=== PATIENT | male | born 1940 | race Caucasian/White ===

== ENCOUNTER → 2016-04-15 | Outpatient (CLI) | payer MEDICARE, OTHER | LOC: RAD 07:24 | PROVIDERS: ATTEND Internal Medicine | DX: C01 Malignant neoplasm of base of tongue (principal) | CPT/HCPCS: 70491; 71260; 82565 ==

== ENCOUNTER → 2016-07-24 | Outpatient (CLI) | payer MEDICARE, OTHER | LOC: RAD 10:21 | PROVIDERS: ATTEND Internal Medicine | DX: C01 Malignant neoplasm of base of tongue (principal); R10.9 Unspecified abdominal pain | CPT/HCPCS: 70491; 71260; 74177 ==

== ENCOUNTER → 2016-10-14 | Outpatient (CLI) | payer MEDICARE, OTHER ==
--- NOTE | 2016-10-14 11:46 | RADIOLOGY REPORT (SQ) ---
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 Reconstructed coronal and sagittal MPR images reviewed. All images stored on PACS. All CT scanners at this facility use dose modulation, iterative reconstruction, and/or weight based d osing when appropriate to reduce radiation dose to as low as reasonably achievable (ALARA). [facility]: Dose Right [facility]: CareDose [facility]: Dose Right [facility]: Teradose 4D [facility]: StudyTube CONTRAST TYPE AND DOSE: contrast/concentration: Isovue 370.00 mg/ml; Total Contrast Delivered: 75.0 ml; Total Saline Delivered: 55.0 ml RENAL FUNCTION: Creatinine 1.0 RADIATION DOSE: 19.2 . LIMITATIONS: There is streak artifact from metallic dental work, which obscures the fine detail at t he tongue base FINDINGS: SKULL BASE: Intact. MAJOR SALIVARY GLANDS: No solid or cystic masses. No inflammatory changes. LYMPHADENOPATHY: No adenopathy. Single 1.2 x 0.8 cm pretracheal lymph node, similar compared to 07/24, 04/15/2016 and 01/13/2016. MUCOSAL MASSES OR ASYMMETRY: There is atrophy of the right tongue base in an area of prior tumor. Fi ne anatomic detail of the tongue is difficult to visualize due to streak artifact from metallic denta l work. LARYNX/CORDS: No abnormal findings. VASCULAR STRUCTURES: The major vessels are patent. LUNG APICES: Clear. BONES: Intact. THYROID: Normal size. No masses. PARANASAL SINUSES: Post bilateral endoscopic sinus surgery with widening of the maxillary outlets and resection of the inferior turbinates. OTHER: No other significant finding. IMPRESSION: Atrophy of the rightward tongue base post treatment. TECHNICAL DOCUMENTATION: JOB ID: [id number] Quality ID # [id number]: Final reports with documentation of one or more dose reduction techniques (e.g., Au tomated exposure control, adjustment of the mA and/or kV according to patient size, use of iterative reconstruction technique) 2010 [employer]- All Rights Reserved
== END ==
LOC: RAD 07:56
PROVIDERS: ATTEND Internal Medicine
DX: C01 Malignant neoplasm of base of tongue (principal)
CPT/HCPCS: 70491; 82565

== ENCOUNTER → 2017-07-21 | Outpatient (CLI) | payer MEDICARE, OTHER ==
--- NOTE | 2017-07-21 13:02 | RADIOLOGY REPORT (SQ) ---
EXAM DESCRIPTION: BARIUM SWALLOW ESOPHAGUS COMPLETED DATE/TIME: 07/21/2017 9:44 am REASON FOR STUDY: R13.10 DYSPHAGIA, UNSPECIFIED R13.10 DYSPHAGIA, UNSPECIFIED COMPARISON: None. TECHNIQUE: Under fluoroscopic guidance, patient ingested effervescent granules followed by thick and thin barium. Fluoroscopic spot images and routine radiographic images acquired and stored on PACS. 12 MM BARIUM TABLET GIVEN: The patient swallowed a 12 mm barium tablet which passed easily through th e esophagus and into the stomach without delay. LIMITATIONS: None. FLUOROSCOPY TIME: FLUORO TIME: 2.5 minutes 8 images saved to PACS. FINDINGS: NEUROMUSCULAR COORDINATION OF SWALLOW: Normal. Trace aspiration was seen from contrast re siduals. ESOPHAGEAL MOTILITY: Normal peristalsis. No esophageal spasm. ESOPHAGEAL MUCOSA: Normal mucosa without masses or ulceration. GASTRO-ESOPHAGEAL JUNCTION: No hiatal hernia identified. Significant gastroesophageal reflux was dem onstrated. NON-GI TRACT STRUCTURES: No significant finding. OTHER: No other significant finding. IMPRESSION: GASTROESOPHAGEAL REFLUX. TRACE ASPIRATION FROM RESIDUALS. OTHERWISE UNREMARKABLE STUDY . RECOMMENDATION: NONE COMMENT: NONE Quality ID 145: Final reports for procedures using fluoroscopy that document radiation exposure fab josemanuel, or exposure time and number of fluorographic images (if radiation exposure indices are not avail able) TECHNICAL DOCUMENTATION: JOB ID: [id number] [employer]- All Rights Reserved Reading location - IP/workstation name: [email or web address]
== END ==
LOC: RAD 10:21
PROVIDERS: ATTEND Family Medicine
DX: K21.9 Gastro-esophageal reflux disease without esophagitis (principal); R13.10 Dysphagia, unspecified
CPT/HCPCS: 74220

== ENCOUNTER → 2017-07-30 | Outpatient (CLI) | payer MEDICARE, OTHER ==
--- NOTE | 2017-07-30 10:25 | RADIOLOGY REPORT (SQ) ---
EXAM DESCRIPTION: CT SOFT TISSUE NECK WITH COMPLETED DATE/TIME: 07/30/2017 9:48 am REASON FOR STUDY: TONGUE CA (C01) C01 MALIGNANT NEOPLASM OF BASE OF TONGUE COMPARISON: PET-CT 04/21/2015, 05/08/2015, 01/13/2016 MRI soft tissue neck 05/08/2015 CT soft tissue neck 04/15/2016, 07/24/2016, 10/14/2016, 02/13/2017 CT chest 07/24/2016 TECHNIQUE: Post IV contrasted scanning from skull base through lung apices with review of bone, soft tissue and lung windows. Reconstructed coronal and sagittal MPR images reviewed. All images stored on PACS. All CT scanners at this facility use dose modulation, iterative reconstruction, and/or weight based d osing when appropriate to reduce radiation dose to as low as reasonably achievable (ALARA). [facility]: Dose Right [facility]: CareDose [facility]: Dose Right [facility]: Teradose 4D [facility]: [employer] CONTRAST TYPE AND DOSE: contrast/concentration: Isovue 370.00 mg/ml; Total Contrast Delivered: 75.0 ml; Total Saline Delivered: 55.0 ml RENAL FUNCTION: Creatinine 1.0 RADIATION DOSE: 20.6 mGy . LIMITATIONS: Streak artifact from metallic dental work FINDINGS: SKULL BASE: Inferior brain parenchyma in the field of view unremarkable MAJOR SALIVARY GLANDS: No solid or cystic masses. No inflammatory changes. LYMPHADENOPATHY: No cervical adenopathy. In the upper mediastinum, a 1.4 x 1 cm pretracheal lymph no de is present on axial image 95 (was 1.2 x 1 cm on 07/24/2016). A 2.7 x 1.4 cm precarinal lymph node is present on axial image 100 (was 2 x 1.2 cm in size on 07/25/19). MUCOSAL MASSES OR ASYMMETRY: Tongue base mass seen on MRI 05/08/2015 is no longer identified. Mild atr ophy of the right tongue muscles. No gross recurrent enhancing tongue base mass. LARYNX/CORDS: No abnormal findings. VASCULAR STRUCTURES: The major vessels are patent. LUNG APICES: There is new airspace disease versus mass in the posterior right upper lobe on image 108 . Follow-up CT chest recommended. BONES: Post cervical fusion with hardware from C4 through C7. Old right healed clavicle fracture THYROID: Normal size. No masses. PARANASAL SINUSES: Air-fluid levels in the bilateral maxillary sinuses, mucous membrane thickening an d fluid in the right anterior ethmoid air cells OTHER: No other significant finding. IMPRESSION: No CT evidence of recurrent tongue base mass or cervical adenopathy Upper mediastinal adenopathy with mass versus infiltrate in the posterior aspect right lung apex TECHNICAL DOCUMENTATION: JOB ID: [id number] Quality ID # [id number]: Final reports with documentation of one or more dose reduction techniques (e.g., Au tomated exposure control, adjustment of the mA and/or kV according to patient size, use of iterative reconstruction technique) 2010 [employer]- All Rights Reserved Reading location - IP/workstation name: [email or web address]
== END ==
LOC: RAD 09:11
PROVIDERS: ATTEND Internal Medicine
DX: C01 Malignant neoplasm of base of tongue (principal)
CPT/HCPCS: 70491; 82565

== ENCOUNTER → 2017-10-31 | Outpatient (CLI) | payer MEDICARE, OTHER ==
--- NOTE | 2017-10-31 09:41 | RADIOLOGY REPORT (SQ) ---
EXAM DESCRIPTION: CT CHEST WITHOUT COMPLETED DATE/TIME: 10/31/2017 9:12 am REASON FOR STUDY: TONGUE CA C01 MALIGNANT NEOPLASM OF BASE OF TONGUE COMPARISON: CT chest 04/15/2016, 11/14/2011 CT soft tissue neck 07/30/2017 PET-CT 01/13/2016 TECHNIQUE: CT scan performed of the chest without intravenous contrast. Images reviewed with lung, soft tissue and bone windows. Reconstructed coronal and sagittal MPR images reviewed. All images st ored on PACS. All CT scanners at this facility use dose modulation, iterative reconstruction, and/or weight based d osing when appropriate to reduce radiation dose to as low as reasonably achievable (ALARA). [facility]: Dose Right [facility]: CareDose [facility]: Dose Right [facility]: Teradose 4D [facility]: [employer] RADIATION DOSE: CT Rad equipment meets quality standard of care and radiation dose reduction techniq ues were employed. CTDIvol: 5.4 mGy. DLP: 203 mGy-cm. mGy. LIMITATIONS: No technical limitations. FINDINGS: LUNGS AND PLEURA: Mild increased interstitial markings are present in the right lung, uppe r lobe adjacent to the minor fissure and right lower lobe. This could represent sequela of treated a spiration pneumonia. Currently, no fluffy alveolar infiltrates are present worrisome for pneumonia. No pleural effusion. No pneumothorax. No worrisome pulmonary nodules. HILAR AND MEDIASTINAL STRUCTURES: Decrease in size of lymph nodes in the upper anterior mediastinum c ompared to CT soft tissue neck 07/30/2017 as follows: Pretracheal 1.6 x 0.8 cm lymph node axial image 15 (was 1.4 x 1 cm in size 07/30/2017). Precarinal 2 x 1.4 cm lymph node axial image 23 (was 2.7 x 1.4 cm on 07/30/2017). No gross enlarged hilar lymph nodes. No significant sub- carinal adenopathy. HEART AND VASCULAR STRUCTURES: No aneurysm. No pericardial effusion. Mild coronary artery calcifica tions UPPER ABDOMEN: Stable 4.5 x 2.5 cm cyst left lobe liver THYROID AND OTHER SOFT TISSUES: Unremarkable BONES: No significant finding. HARDWARE: None in the chest. OTHER: No other significant findings. IMPRESSION: Decreased size of mediastinal lymph nodes compared to 07/30/2017 Mild increased interstitial markings throughout the right lung, question sequela of prior aspiration pneumonia. TECHNICAL DOCUMENTATION: JOB ID: [id number] Quality ID # 436: Final reports with documentation of one or more dose reduction techniques (e.g., Au tomated exposure control, adjustment of the mA and/or kV according to patient size, use of iterative reconstruction technique) 2010 [employer]- All Rights Reserved Reading location - IP/workstation name: [facility]
== END ==
LOC: RAD 08:58
PROVIDERS: ATTEND Internal Medicine
DX: C01 Malignant neoplasm of base of tongue (principal)
CPT/HCPCS: 71250

== ENCOUNTER → 2019-01-03 | Outpatient (CLI) | payer MEDICARE, OTHER ==
--- NOTE | 2019-01-04 08:40 | RADIOLOGY REPORT (SQ) ---
EXAM DESCRIPTION: PET CT SKULL/THIGH COMPLETED DATE/TIME: 01/04/2019 12:28 am REASON FOR STUDY: (C01)MALIGNANT NEOPLASM OF BASE OF TONGUE C01 MALIGNANT NEOPLASM OF BASE OF TONGU E COMPARISON: PET-CT 01/13/2016 CT soft tissue neck 07/30/2017, 07/24/2016 CT chest 10/31/2017, 07/24/2016 RADIONUCLIDE AND DOSE: 11.6 mCi F18 FDG The route of agent administration: Intravenous FASTING BLOOD SUGAR: 103 mg/dl CONTRAST TYPE AND DOSE: No CT contrast given. TECHNIQUE: Blood glucose level was verified. Above dose of FDG was injected intravenously. 2-D seg mented attenuation correction images were obtained from the base of the skull to the midthighs. Nonc ontrast CT images were obtained for attenuation correction and fusion with emission images. CT image s were performed without oral or intravenous contrast and are not sensitive for parenchymal lesions. A series of overlapping emission PET images were obtained. [facility] by the radiologist. Images stored on PACS. LIMITATIONS: None. FINDINGS: HEAD AND NECK: No areas of abnormal metabolic activity in the soft tissues of the head and neck. Specifically, no recurrence tongue base neoplasm is identified. CHEST: There is patchy airspace disease in the right middle lobe (SUV 4.2), and in the right lower lo be (SUV 3.0). Adjacent reactive pleural effusion without pleural metabolic activity. There are lymph nodes with minimal baseline activity equal to that of the liver, likely reactive in n ature. These are smaller than on prior exams and are as follows: Pretracheal 1.6 x 1 cm lymph node axial image 70 SUV 2.0 Right paratracheal 1.9 x 1.2 cm lymph node axial image 80 SUV 2.2 ABDOMEN AND PELVIS: No areas of abnormal metabolic activity in the abdomen or pelvis. Expected physi ologic activity is present in the genitourinary system and bowel. PROXIMAL LOWER EXTREMITIES: No areas of abnormal metabolic activity in the soft tissues of the lower extremities. BONES: No abnormal metabolic activity in the visualized skeleton. ADDITIONAL CT FINDINGS: Lower cervical spine fusion. Coronary artery calcifications. Benign liver c ysts. OTHER: Liver background activity 2.0 SUV. Blood pool background activity 1.6 SUV IMPRESSION: Resolving right middle and lower lobe pneumonia with reactive benign appearing mediastin al adenopathy No PET-CT evidence of recurrent tongue base malignancy. TECHNICAL DOCUMENTATION: JOB ID: [id number] [employer]- All Rights Reserved Reading location - IP/workstation name: [email or web address]
== END ==
LOC: RAD 14:20
PROVIDERS: ATTEND Internal Medicine
DX: C01 Malignant neoplasm of base of tongue (principal)
CPT/HCPCS: 78815; A9552

== ENCOUNTER → 2019-03-10 | Outpatient (CLI) | payer MEDICARE, OTHER ==
--- NOTE | 2019-03-10 13:22 | RADIOLOGY REPORT (SQ) ---
EXAM DESCRIPTION: CT CHEST WITHOUT COMPLETED DATE/TIME: 03/10/2019 9:49 am REASON FOR STUDY: SOB R06.02 SHORTNESS OF BREATH COMPARISON: 10/31/2017 TECHNIQUE: CT scan performed of the chest without intravenous contrast. Images reviewed with lung, soft tissue and bone windows. Reconstructed coronal and sagittal MPR images reviewed. All images st ored on PACS. All CT scanners at this facility use dose modulation, iterative reconstruction, and/or weight based d osing when appropriate to reduce radiation dose to as low as reasonably achievable (ALARA). [facility]: Dose Right [facility]: CareDose [facility]: Dose Right [facility]: Teradose 4D [facility]: [employer] RADIATION DOSE: CT Rad equipment meets quality standard of care and radiation dose reduction techniq ues were employed. CTDIvol: 6.3 mGy. DLP: 262 mGy-cm. mGy. LIMITATIONS: No technical limitations. FINDINGS: LUNGS AND PLEURA: There is a large right-sided hydropneumothorax. No significant mediasti nal shift. There is patchy consolidation most conspicuous within the right lower lobe. Left hemitho rax demonstrates minimal scattered areas ground-glass attenuation hypoventilatory change. No signifi cant effusion or pneumothorax in the left. HILAR AND MEDIASTINAL STRUCTURES: Grossly stable mediastinal nodes. Largest pretracheal node measure s 9 mm in short axis. No new discrete mediastinal, hilar or axillary adenopathy. . Dilation of the ascending aorta measuring up to 3.6 cm. HEART AND VASCULAR STRUCTURES: Coronary atherosclerosis. Normal heart size. No pericardial effusion . UPPER ABDOMEN: No acute findings. Gastrostomy tube retention bumper within the gastric lumen. Left hepatic cyst. THYROID AND OTHER SOFT TISSUES: Unremarkable thyroid. BONES: No significant finding. HARDWARE: None in the chest. OTHER: No other significant findings. IMPRESSION: 1. Large right-sided hydropneumothorax. No significant mediastinal shift. Consider ch est tube placement. 2. Patchy consolidation throughout the right lung, possibly atelectasis or infection. Findings were conveyed to Dr. Leiva On 03/10/2019 at 1310 hours. TECHNICAL DOCUMENTATION: JOB ID: [id number] Quality ID # [id number]: Final reports with documentation of one or more dose reduction techniques (e.g., Au tomated exposure control, adjustment of the mA and/or kV according to patient size, use of iterative reconstruction technique) 2010 [employer]- All Rights Reserved Reading location - IP/workstation name: [email or web address]
== END ==
LOC: RAD 09:33
PROVIDERS: ATTEND Physician Assistant Medical
DX: J94.2 Hemothorax (principal); R06.02 Shortness of breath
CPT/HCPCS: 71250

== ENCOUNTER → 2019-11-25 | Outpatient (CLI) | payer MEDICARE, OTHER ==
--- NOTE | 2019-11-25 09:20 | ST Modified Barium Swallow ---
Recommendation - Recommendations Recommendations: Recommend following up with outpatient speech therapy for dysphagia treatment. Primary source of nutrition should remain PEG. Recommend possible GI consult due to significantly reduced UES opening during swallowing. 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 Stern Risks/Precautions: Aspiration Date of Onset: 07/30/15 - approximate onset Reason for Referral: difficulty swallowing, use of PEG tube - History -: Medical - Patient evaluated in outpatient office on 11/10/19 with the following history: Broken neck in 1958. Hx of prostate CA. Tongue CA, treated with radiation and chemo (07/2015-09/2015). R lung collapsed in 10/2018, and again on 02/2019. The pt did have PEG placed- currently intakes 95% of nutrition through PEG. He currently uses packets of bolus called "Real Food" that is a puree consistency. He does eat one meal a day with his by mouth which is puree and thin liquid. He has difficulty maintaining weight. He currently does not use pre-meal oral care. He has thick mucus that remains in his pharyngeal spaces that he is able to intermittently bring up and cough out. These secretions are noted to be light yellow and thick. He feels this is what is causing an increase of his voice/speech problems and dysphagia. He did have ST intervention at [facility] where x2 MBSSs were performed, this ST does not have access to these records. He and his report that he "failed" them and there were stopped d/t aspiration. Apparently he was recommended a nothing by mouth diet, but he continues to consume puree and thin liquids. His ENT has scoped him several times, but not lately d/t Covid-19 restrictions. He and his had no significant details from the ENT. He is missing most of his R lower and partially the R upper teeth 2/2 radiation. He feels that some on the L will need to be removed, but will only do so if they become painful. He is planning on having dental implants done on the R side of his mouth. He reports his sleep cycle ever since starting radiation/chemo has been very off and often feels bad 2/2 being exhausted. Medications: albuterol, budesonide, bupropion, clotrimazole, doxycycline, glycopyrrolate, loratadine, meroprolol succinate, mucinex oral, nebulizers, neupro, oxycodone, pantoprazole, symicort, synthroid Allergies: diphenhydramine Hcl, levofloxacin, sulfa, trazodone, piperacillin- tazobactam, tamsulosin, mirabegron - Functional Status Prior Functional Status: INDEPENDENT: feeding Current Functional Limitations: feeding - PEG use primarily - Subjective Patient/caregiver goal(s): improve intake, better swallow Cognitive-Linguistic Function: WNL Speech Intelligibility: Reduced intelligibility - due to voice quality Current Nutritional Means: PEG - primary, PO - minimal, puree and thin liquid Current symptoms: Coughing, Aspiration Pain: Patient reports, 2/5 - left arm pain - Objective Assessment: Upright, Left Lateral - Food Trials Used Food trials used: Thin liquids, [place] thick liquids The patient: Was Able to Self Feed - Oral-Motor Skills Dentition: Partial Velo-pharyngeal function: Other - soft palate noted to deviate to right side. Thick white secretions observed on posterior wall Laryngeal Function: weak voicing, hoarse - Assessment Oral prep: Normal Labial closure: Adequate Leakage: None Lingual Movement: Normal Oral stage: Normal for this Procedure - Pharyngeal Stage Initiation of Pharyngeal Stage Reflex: Normal Decreased laryngeal elevation: Yes Reduced Velopharyngeal Closure: no Reduced pressure generation: Yes Pre-swallow pooling in valleculae: Moderate Pre-Swallow pooling in pyriforms: Moderate Reduced Thyro-Hyoid approximation: Yes Reduced epiglottic excursion: Yes Reduced pharyngeal peristalsis/contraction: Yes Multiple Swallows with: Ineffective Clearance Post-swallow residulas vallecular: Moderate Post-Swallow residuals in pyriforms: Significant Reduced Cricopharyngeal opening: Yes - Fall Risk Assessment Medications/Conditions that increase fall risks include: Antidepressants, sedatives, anti-arrhythmic, diuretic, benzodiazipenes, neuroleptics. BP regulation problems, cardiac problems, balance or gait deficits, neurological problems. Is patient considered at risk for falls: no Fall Risk Actions Taken: No action needed - Behavioral Observations During evaluation process patient: was pleasant, was cooperative - Treatment / Educational Needs: Treatment/Education Needs: Treatment consisted of patient education on the role of the Speech Pathologist. Patient's plan of care and golas were communicated as well as scheduling and attendance policies. Recommendations for initial home program were shared. Patient demonstrated understanding and verbalized agreement. - Impression/Summary Laryngeal Penetration: Yes Tracheal Aspiration: yes - seen on the swallow with thin liquids, and after the swallow from residuals with thin and nectar liquids. Delayed throat clear response seen with aspiration, patient coughed up some of barium aspirated x1. Effective compensatory strategies: head turn-left - moderately improved pyriform clearance seen with head turn to left, throat clear & reswallow - helped clear penetrated material Ineffective compensatory strategies: head turn-right, chin tuck Patient presents with: Pharyngeal stage dysph., Severe Risk of Aspiration: Severe Risk of nutritional compromise: WNL - patient has PEG tube Evaluation and Findings: Patient presents with severe pharyngeal phase dysph agia. This is characterized by reduced laryngeal elevation and airway closure, which allowed thin barium to enter the airway on the swallow. Reduced epiglottic inversion, pharyngeal constriction, and UES opening also seen, which resulted in significant residue in the phayrnx after the swallow. This residue was present with thin and nectar barium, but increased significantly with nectar. This resid ue was also seen to enter the airway after the swallow, spilling from the pyriform to the laryngeal vestibule. With dry swallows, very small amounts of barium seen to clear through UES with each swalow, this was moderately increased with left head turn. Although significantly reduced movement and function of pharyngeal muscles was seen and places patient at higher risk of aspiration, primary barrier at this time to PO appears to be reduced upper esophageal sphyncter function. - Recommendations NPO: therapeutic trials Dysphagia therapy with SOLUTION PROFESSIONAL: dysphagia therapy, f/u with current thera. Information, Precautions and Recommendations: Patient (Written), Patient (Verbal) Other recommendations: Recommend patient follow up with current outpatient therapy for dysphagia treatment. May benefit from GI consult due to UES dysfunction. Patient may wish to continue with PO at home per patient preference. Primary source of nutrition is recommended to be PEG tube, recommend good oral care before and after PO to reduce risk of aspiration pneumonia. - Time Total Time: 30 - Plan of Care Strategies to optimize patient understanding include:: ongoing assessment of educational needs, implementation of educational strategies, and re-education. - - -: Thank you for the opportunity to work with this patient and his/her family. Should you have any questions about this patient's plan or progress, I can be reached at [phone].
--- NOTE | 2019-11-25 10:15 | RADIOLOGY REPORT (SQ) ---
EXAM DESCRIPTION: COOKIE SWALLOW IMAGES COMPLETED DATE/TIME: 11/25/2019 9:10 am REASON FOR STUDY: (R13.10)DYSPHAGIA, UNSPECIFIED R13.10 DYSPHAGIA, UNSPECIFIED COMPARISON: None. TECHNIQUE: Videofluoroscopic swallowing examination was performed in conjunction with speech patholo gy. Videofluoroscopic imaging was obtained and reviewed and these are the findings: RADIATION DOSE: Fluoro time 2.6 minutes 1 images saved to PACS. LIMITATIONS: None FINDINGS: The patient was brought into the fluoro room and placed upright on a modified barium swall ow chair. The patient was then given multiple consistencies mixed with barium to swallow under live fluoroscopic video guidance. According to the Speech Pathologist there was aspiration seen with thin and nectar thick consistencies. There is a narrowing of the upper esophagus which causes significan t residuals in the piriform. Please refer to the speech pathology report for further details. IMPRESSION: ASPIRATION WITH THIN AND NECTAR THICK CONSISTENCIES. UPPER ESOPHAGEAL NARROWING. PLEASE SEE SPEECH PATHOLOGIST REPORT FOR OTHER FINDINGS AND RECOMMENDATIONS. COMMENT: NONE Quality ID 145: Final reports for procedures using fluoroscopy that document radiation exposure fab josemanuel, or exposure time and number of fluorographic images (if radiation exposure indices are not avail able) TECHNICAL DOCUMENTATION: JOB ID: [id number] 2010 [employer]- All Rights Reserved Reading location - IP/workstation name: [email or web address]
== END ==
LOC: RAD 08:04
PROVIDERS: ATTEND Otolaryngology
DX: R13.10 Dysphagia, unspecified (principal); C14.0 Malignant neoplasm of pharynx, unspecified
CPT/HCPCS: 74230